=== PATIENT | male | born 1970 | race Caucasian/White ===

== ENCOUNTER 2018-04-18 12:52 | Emergency (ER) | payer MEDICAID ==
[~2018-04-18] VITALS: Ht 170.2 cm; Wt 90.9 kg
[2018-04-18] MEDS ORDERED: KETOROLAC TROMETHAMINE 30 MG/ML VIAL IM ONE (15:00)
[2018-04-18] MEDS ORDERED: NYSTATIN 30 GM CREAM TP ONE (15:00)
[2018-04-18] MEDS ORDERED: BENZOCAINE/MENTHOL LOZENGE PO ONE (15:00)
[2018-04-18 15:23] LABS: INFLUENZA TYPE A NEGATIVE FOR TYPE A (NEGATIVE); INFLUENZA TYPE B NEGATIVE FOR TYPE B (NEGATIVE); RAPID GROUP A STREP NEGATIVE (NEGATIVE)
[2018-04-18 16:11] VITALS: BP 127/79
== END 2018-04-18 16:18 | disposition home or self-care (01) ==
LOC: EMS 12:54
DX: J02.9 Acute pharyngitis, unspecified (principal); B37.0 Candidal stomatitis; R51 Headache; F17.210 Nicotine dependence, cigarettes, uncomplicated
CPT/HCPCS: 87430; 87804; 96372; 99284; 99406; J1885

== ENCOUNTER 2018-05-01 03:18 | Emergency (ER) | payer MEDICAID ==
[~2018-05-01] VITALS: Ht 170.2 cm; Wt 88.6 kg
[2018-05-01] MEDS ORDERED: NYST30CR9 TP (03:37)
[2018-05-01] MEDS ORDERED: NYST100026 PO (03:37)
[2018-05-01] MEDS ORDERED: CEPHALEXIN MONOHYDRATE 500 MG CAPSULE PO ONE (05:30)
[2018-05-01 05:44] VITALS: BP 123/86
== END 2018-05-01 05:55 | disposition home or self-care (01) ==
LOC: EMS 03:18
DX: J02.9 Acute pharyngitis, unspecified (principal); L73.9 Follicular disorder, unspecified; F17.210 Nicotine dependence, cigarettes, uncomplicated

== ENCOUNTER 2018-05-04 14:17 | Emergency (ER) | payer MEDICAID ==
[~2018-05-04] VITALS: Ht 170.2 cm; Wt 70.5 kg
[~2018-05-04 14:17] MED LIST: NYST100026 PO; NYST30CR9 TP
[2018-05-04 14:23] VITALS: BP 121/86
[2018-05-04] MEDS ORDERED: CEPH500 PO (14:27)
[2018-05-04] MEDS ORDERED: FLUCONAZOLE 100 MG TABLET PO ONE (17:15)
== END 2018-05-04 18:40 | disposition home or self-care (01) ==
LOC: EMS 14:18
DX: N45.1 Epididymitis (principal); B35.6 Tinea cruris; L73.9 Follicular disorder, unspecified; B37.0 Candidal stomatitis; F17.210 Nicotine dependence, cigarettes, uncomplicated

== ENCOUNTER 2018-05-21 08:08 | Emergency (ER) | payer MEDICAID ==
[~2018-05-21] VITALS: Ht 170.2 cm; Wt 90.9 kg
[~2018-05-21 08:08] MED LIST changes: +CEPH500 PO; -NYST30CR9 TP
[2018-05-21] MEDS ORDERED: ValACYclovir HCL 500 MG TABLET PO ONE (09:45)
[2018-05-21] MEDS ORDERED: LIDOCAINE 5% 36 GM OINTMENT TP ONE (09:45)
[2018-05-21] MEDS ORDERED: LIDOCAINE/PF 1% 2 ML VIAL IM ONE (09:45)
[2018-05-21] MEDS ORDERED: CefTRIAXone SODIUM 1 GM/VIAL IM ONE (09:45)
[2018-05-21 10:05] VITALS: BP 128/74
== END 2018-05-21 10:13 | disposition home or self-care (01) ==
LOC: EMS 08:08
DX: A60.02 Herpesviral infection of other male genital organs (principal); F17.210 Nicotine dependence, cigarettes, uncomplicated
CPT/HCPCS: 96372; 99283; J0696; J3490